=== PATIENT | male | born 1975 | race African-American/Black ===

== ENCOUNTER 2017-02-14 13:38 | Emergency (ER) | payer OTHER ==
[~2017-02-14] VITALS: Ht 170.2 cm; Wt 71.7 kg
[~2017-02-14 13:38] MED LIST: SULF1TAB24 PO
[2017-02-14 15:06] VITALS: BP 136/67
[2017-02-14] MEDS ORDERED: DIPHTH,PERTUSS(ACELL),TET TOX 0.5 ML DISP.SYRIN. VAX IM ONE (15:30)
[2017-02-14] MEDS ORDERED: LIDOCAINE 1% / SOD BICARB 8.4% 20 ML VIAL. IJ ONE (15:30)
[2017-02-14] MEDS ORDERED: SULF1TAB24 PO (16:36)
[2017-02-14] MEDS ORDERED: HYDR-971 PO (16:36)
--- NOTE | 2017-02-14 16:37 | PHYS DOC ---
Past Medical History Past Medical History: No Pertinent History Past Surgical History: Other Additional Past Surgical Histo: chalzon removed Alcohol Use: Occasionally Drug Use: None Adult General Chief Complaint Chief Complaint: ABSCESS HPI HPI Patient is a 41 year old male who presents with right buttock abscess for 2 days. Denies any fever. Review of Systems Review of Systems Constitutional: see HPI GI: Denies abdominal pain, nausea, vomiting, bloody stools or diarrhea [] : Denies dysuria or hematuria [] Musculoskeletal: Denies back pain or joint pain [] Integument: right buttock abscess Neurologic: Denies headache, focal weakness or sensory changes [] All other systems were reviewed and found to be within normal limits, except as documented in this note. Current Medications Current Medications Current Medications Medications (Trade) Dose Ordered Sig/Patric Start Time Stop Time Status Last Admin Dose Admin Diphtheria/ Tetanus/Acell Pertussis (Boostrix) 0.5 ml ONCE ONCE 02/14/17 15:30 02/14/17 15:31 DC 02/14/17 15:49 0.5 ML Lidocaine/Sodium Bicarbonate (Buffered Lidocaine 1%) 20 ml 1X ONCE 02/14/17 15:30 02/14/17 15:31 DC 02/14/17 15:49 20 ML Allergies Allergies Allergies Coded Allergies Type Severity Reaction Last Updated Verified No Known Drug Allergies 08/01/14 No Physical Exam Physical Exam Constitutional: Well developed, well nourished, no acute distress, non-toxic appearance. [] Abdomen: Bowel sounds normal, soft, no tenderness, no masses, no pulsatile masses. [] Skin: Warm, dry,right buttock with an indurated area approx. 2x2 cm with fluctuance, warmth and TTT Back: No tenderness, no CVA tenderness. [] Extremities: No tenderness, no cyanosis, no clubbing, ROM intact, no edema. [] Neurologic: Alert and oriented X 3, normal motor function, normal sensory function, no focal deficits noted. [] Psychologic: Affect normal, judgement normal, mood normal. [] Current Patient Data Vital Signs Vital Signs Date Time Temp Pulse Resp B/P (MAP) Pulse Ox O2 Delivery O2 Flow Rate FiO2 02/14/17 15:06 98.5 73 18 136/67 (90) 100 Room Air 98.5 EKG EKG [] Radiology/Procedures Radiology/Procedures Indication: abscess of the right buttock Procedure: The patient was positioned appropriately. Local anesthesia was 1% buffered lidocaine. An incision with 11 blade was then made over the apex of the lesion and mild amount of yellow bloody material was expressed. The drainage cavity was irrigated and packed with sterile gauze. The patients tetanus status updated as needed. The patient tolerated the procedure well. Complications: none.[] Course & Med Decision Making Course & Med Decision Making Pertinent Labs and Imaging studies reviewed. (See chart for details) Patient has an abscess on the right buttocks that was drained by me and packed as noted in procedures. Tetanus was updated. He is to follow-up with the ED in 2 days for wound check and packing removal. He was put on Bactrim. Dragon Disclaimer Dragon Disclaimer This electronic medical record was generated, in whole or in part, using a voice recognition dictation system. Departure Departure Impression: Primary Impression: Abscess of cellulitis of buttock Disposition: 01 HOME, SELF-CARE Condition: STABLE Referrals: NO PCP (PCP) follow-up with the ED in 2 days for wound check and packing removal Patient Instructions: Abscess, Care After Additional Instructions: You have an abscess on the right buttocks that was drained in the emergency room and packed. Apply warm compresses to the area twice a day. Keep the area clean and dry. Follow-up with the emergency room in 2 days for wound check and packing removal. Take your antibiotics as prescribed Scripts Sulfamethoxazole/Trimethoprim (BACTRIM DS TABLET) 1 Each Tablet 1 TAB PO BID, #20 TAB Prov: VIVIANE FARNSWORTH APRN 02/14/17 Hydrocodone/Apap 5-325 (NORCO 5-325 TABLET) 1 Each Tablet 1 TAB PO Q4HRS W/A Y for PAIN, #14 TAB Prov: VIVIANE FARNSWORTH APRN 02/14/17 VIVIANE FARNSWORTH APRN Feb 14, 2017 16:37
== END 2017-02-14 16:59 | disposition home or self-care (01) ==
LOC: ER 13:38
DX: L02.31 Cutaneous abscess of buttock (principal); L03.317 Cellulitis of buttock
CPT/HCPCS: 10060; 90471; 90715; 99283-25